=== PATIENT | female | born 1935 | race African-American/Black ===

== ENCOUNTER → 2016-07-24 | Outpatient (CLI) | payer OTHER ==
[2014-08-31 10:01] VITALS: BP 104/52
[~2016-07-24] MED LIST: ASPI-482 PO; CELE200C PO; CYCL10TA2 PO; DONE10TA34 PO; MULT-18 PO
--- NOTE | 2016-07-24 14:15 | KCIC ---
PROCEDURE Lumbar spine radiographs HISTORY Low back pain, bilateral radiculopathy COMPARISON None FINDINGS Five views of the lumbar spine are submitted. There is mild lumbar levoscoliosis. There is bone demineralization. There is grade 1 anterior spondylolisthesis at L4-5 and L5-S1. There is multilevel spondylosis. There is moderate to severe degenerative disc disease L4-5, to a lesser degree at L3-4 and L5-S1. There is multilevel lumbar facet degenerative change greater inferiorly of the lumbar spine. There is degenerative change of the right hip. Vertebral body stature is adequate. IMPRESSION 1. There is grade 1 anterior spondylolisthesis L4-5 and L5-S1. There is multilevel lumbar facet degenerative change greater inferiorly of the lumbar spine. There is degenerative disc disease greatest at L4-5 and to a lesser degree L3-4 and L5-S1. There is multilevel spondylosis. There is mild lumbar levoscoliosis. 2. There is degenerative change of the right hip. Electronically signed by: Xander Leos MD (Jul 24, 2016 14:13:48)
== END | disposition home or self-care (01) ==
LOC: KCIC 11:13
PROVIDERS: ATTEND Family Medicine
DX: M54.17 Radiculopathy, lumbosacral region (principal); M16.11 Unilateral primary osteoarthritis, right hip; M51.37 Other intervertebral disc degeneration, lumbosacral region; M47.896 Other spondylosis, lumbar region; M43.17 Spondylolisthesis, lumbosacral region; M54.5 Low back pain
CPT/HCPCS: 72110